=== PATIENT | female | born 1975 | race Caucasian/White ===

== ENCOUNTER → 2020-08-22 | Outpatient (CLI) | payer OTHER | LOC: M.LAB 15:46 | PROVIDERS: ATTEND Internal Medicine Critical Care Medicine | DX: J45.30 Mild persistent asthma, uncomplicated (principal); R06.02 Shortness of breath; R05 Cough ==

== ENCOUNTER → 2020-11-30 | Outpatient (CLI) | payer OTHER ==
--- NOTE | 2020-12-01 15:43 | PF ---
[address] [address] PULMONARY FUNCTION REPORT Name: EBENEZER ALASN Room: [facility]#: [id number] Admission: 11/30/20 Attend Phys: Shukri Pack MD Discharge: Date of : 77 Report #: [id number] THIS REPORT FOR: cc: Gavin Dougherty MD, Jeffrey MD Pervez,Shukri DUBOIS ~ DATE OF VISIT: 11/30/2020 The FEV1/FVC ratio is normal at 80% with an FVC normal at 88%. The FEV1 is also normal at 88%. The FPG91-20 is normal at 84%. After the administration of a bronchodilator, there is a 50% decrease in FEF 25-75. There is no significant change in any of the other values mentioned here. The patient's post-bronchodilator FEV1 is 2.90 liters. The total lung capacity is increased to 127%. The residual volume is increased to 185%. The DLCO as adjusted for hemoglobin is minimally decreased to 79%. IMPRESSION: 1. The spirometry is normal. There is, however, a 50% increase in FEF 25-75 noted after the administration of albuterol. This could be a normal variant or could indicate underlying minimal obstructive lung disease. 2. There is hyperinflation noted on lung volumes. Again, the possibility of underlying obstruction is considered. No definite obstruction is noted, however. 3. Minimal decrease in DLCO as adjusted for hemoglobin to 79%. <ELECTRONICALLY SIGNED> By: Shukri Pack MD 12/01/20 [id number] Pack MD /nt
== END ==
LOC: M.PUL 13:15
PROVIDERS: ATTEND Internal Medicine Critical Care Medicine
DX: R06.02 Shortness of breath (principal); R05.9 Cough, unspecified; J45.30 Mild persistent asthma, uncomplicated